=== PATIENT | female | born 1990 | race Caucasian/White ===

== ENCOUNTER 2017-09-27 18:07 | Emergency (ER) | payer MEDICARE, MEDICAID ==
[~2017-09-27] VITALS: Ht 170.2 cm; Wt 103.0 kg
[~2017-09-27 18:07] MED LIST: ACET650T11 PEG; BAC10T PO; CYCL-1 PO; FAMO40TA73 PO; IBUP-1984 PO; NITR100C6 PO; ONDA4TAB6 PO; ONDA8TAB9 PO; PANT-47 PO; PHEN-873 PO
[2017-09-27] MEDS ORDERED: TETanus/Pertussis (Acell)/Diphther VAC/PF (Tdap-Adult) 0.5ml syringe IMVAC ONE (19:35)
[2017-09-27] MEDS ORDERED: HYDROcodone/acetaminophen 10/325mg tab PO ONE (19:35)
[2017-09-27] MEDS ORDERED: methylPREDNISolone acetate 80mg/ml inj**IM only IM ONE (20:20)
[2017-09-27] MEDS ORDERED: DIPH25CA83 PO (20:23)
[2017-09-27] MEDS ORDERED: methylPREDNISolone sod succ 125mg/2ml vial IM ONE (20:25)
[2017-09-27] MEDS ORDERED: AMOX-422 PO (20:29)
[2017-09-27 20:48] VITALS: BP 122/78
== END 2017-09-27 20:51 | disposition home or self-care (01) ==
LOC: ER 18:08
DX: S61.452A Open bite of left hand, initial encounter (principal); S61.451A Open bite of right hand, initial encounter; G89.29 Other chronic pain; K21.9 Gastro-esophageal reflux disease without esophagitis; J45.909 Unspecified asthma, uncomplicated; Z79.899 Other long term (current) drug therapy; W54.0XXA Bitten by dog, initial encounter; Y93.89 Activity, other specified; Y92.89 Other specified places as the place of occurrence of the external cause; Y99.8 Other external cause status
CPT/HCPCS: 73130; 90471; 90715; 96372; 99284; A6266; A6449; J2930; J1040

== ENCOUNTER 2024-10-27 09:52 | Emergency (ER) | payer OTHER ==
[~2024-10-27] VITALS: Ht 170.2 cm; Wt 88.5 kg
[~2024-10-27 09:52] MED LIST changes: +PHEN-786 PO; -PHEN-873 PO
[2024-10-27 10:47] LABS: URINE HCG NEGATIVE (NEG)
[2024-10-27 10:50] LABS: BILIRUBIN,URINE NEGATIVE (Neg); CLARITY,URINE CLEAR (Clear); COLOR,URINE YELLOW (Yellow); GLUCOSE, URINE NEGATIVE (Neg); KETONES,URINE NEGATIVE (Neg); LEUKOCYTE ESTERASE ,URINE NEGATIVE (Neg); NITRITES, URINE NEGATIVE (Neg); OCCULT BLOOD,URINE NEGATIVE (Neg); PROTEIN,URINE NEGATIVE (Neg); UROBILINOGEN,URINE 0.2 E.U/dL (0.2-1.0)
[2024-10-27 10:50] LABS: BASOPHILS # (AUTO) 0.1 X10'3 (0-0.2); BASOPHILS % (AUTO) 1.1 % (0-1); EOSINOPHILS # (AUTO) 0.2 X10'3 (0-0.9); EOSINOPHILS % (AUTO) 2.3 % (0-6); HEMATOCRIT 43.1 % (35.0-45.0); LYMPHOCYTES # (AUTO) 2.7 X10'3 (1.1-4.8); LYMPHOCYTES % (AUTO) 37.9 % (21-51); MEAN CORPUSCULAR HEMOGLOBIN 29.1 PG (27.0-31.0); MEAN CORPUSCULAR HGB CONC 34.9 g/dL (33.0-36.5); MEAN CORPUSCULAR VOLUME 83.5 FL (78-98); MEAN PLATELET VOLUME 6.8 FL (7.4-10.4); MONOCYTES # (AUTO) 0.3 X10'3 (0-0.9); MONOCYTES % (AUTO) 4.2 % (2-12); NEUTROPHILS # (AUTO) 3.8 X10'3 (1.8-7.7); NEUTROPHILS % (AUTO) 54.5 % (42-75); PLATELET COUNT 254 X10'3 (140-440); RED BLOOD COUNT 5.16 X10'6 (4.20-5.60); RED CELL DISTRIBUTION WIDTH 13.8 % (11.5-14.5)
[2024-10-27 10:57] LABS: UA COLLECTION TYPE CLN CATCH MIDSTREAM
[2024-10-27 11:11] LABS: ALANINE AMINOTRANSFERASE 32 U/L (12-78); ALKALINE PHOSPHATASE 32 IU/L (46-116); ANION GAP 9 (8-16); ASPARTATE AMINO TRANSFERASE 14 U/L (10-37); BILIRUBIN,TOTAL 0.6 MG/DL (0.1-1.0); BLOOD UREA NITROGEN 10 MG/DL (7-18); BUN/CREATININE RATIO 14.3 (10.0-20.0); CALCIUM 8.9 MG/DL (8.5-10.1); CHLORIDE 105 MMOL/L (99-107); GLUCOSE 104 MG/DL (70-104); LIPASE 34 U/L (16-77); POTASSIUM 3.9 MMOL/L (3.5-5.1); SODIUM 140 MMOL/L (135-145); TOTAL CARBON DIOXIDE 26.2 MMOL/L (24-32); TOTAL PROTEIN 8.2 G/DL (6.4-8.2); eCRCL 109 ML/MIN; eGFR > 90 ML/MIN
--- NOTE | 2024-10-27 13:12 | RADIOLOGY REPORT ---
ABDOMINAL ULTRASOUND CLINICAL HISTORY: Please do gallbladder and right kidney TECHNIQUE: Multiple grayscale and color Doppler ultrasound images were obtained of the abdomen. WID: COMPARISON: None FINDINGS: Liver and Biliary System: Homogeneous echotexture, normal size measuring 18.4 cm. No focal hepatic observations. No intrahepatic bile duct dilatation. The common duct measures 0.25 cm at the yony hepatis. The gallbladder there sludge in a normal caliber gallbladder. Gallbladder wall measures 3 .6 mm.. Pancreas: Visualized portions are unremarkable. Kidneys: The right kidney is 10.4 x 4.8 x 5.2 cm . No hydronephrosis, increased echogenicity, shado wing stone, or focal lesion. IMPRESSION: 1. Mild hepatomegaly. 2. Gallbladder sludge. No acute cholecystitis or biliary ductal dilatation.
[2024-10-27] MEDS ORDERED: DICY20TA17 PO (13:16)
[2024-10-27] MEDS ORDERED: LACT-373 PO (13:16)
--- NOTE | 2024-10-27 13:16 | Physician Documentation ---
History of Present Illness Chief Complaint: Abdominal Pain Stated Complaint: ABD PAIN Time Seen by MD: 10:39 OK to notify your PCP?: Yes Primary Medical Doctor: ASHLEY READ IN Mode of Arrival: POV HPI Abdominal pain since Monday Medication Reconciliation Allergies: Coded Allergies: No Known Allergies (Unverified , 05/09/14) Scheduled Baclofen* (Lioresal*), 10 MG PO BID, (Reported) Dicyclomine HCl (Dicyclomine HCl), 1 TAB PO Q8H Famotidine (Pepcid), 1 TAB PO DAILY Ibuprofen* (Motrin*), 400 MG PO QID, (Reported) Nitrofurantoin Monohyd/M-Cryst (Macrobid 100 mg Capsule), 1 CAP PO BID Pantoprazole Sodium (PROTONIX tablet), 1 TAB PO DAILY Phenazopyridine Hcl (Pyridium tablet), 2 TAB PO TID Scheduled PRN Acetaminophen (Acetaminophen), 1 TAB PEG Q4H PRN for Fever above 101 Cyclobenzaprine* (Cyclobenzaprine*), 1 TABLET PO Q8H PRN for muscle spasms Lactulose (Lactulose), 30 ML PO Q12H PRN for constipation Ondansetron (Zofran Odt), 8 MG PO QID PRN for nausea/vomiting Ondansetron Hcl (Zofran), 1 TAB PO Q6H PRN for nausea Phenazopyridine Hcl (Pyridium tablet), 1 TAB PO Q8H PRN for bladder spasms Past Medical History Past Medical History: Asthma, GERD, UTI, Thyroid (unspecified), Chronic Back Pain, Bipolar Past Surgical History: no surgical history Smoking Status: Never smoker Alcohol Use: Occasionally Drug Use: none Lives with: S/O Lives In: Home Occupation: employed Review of Systems ROS As stated above in the HPI, otherwise all systems are reviewed and negative. Physical Exam Vital Signs: Temperature: 98.5, Source: Oral, Heart Rate: 77, Respiratory Rate: 16, BP: 125/82, Pulse Oximetry: 99, Weight: 88.500 Oxygen Flow Rate: 0 Physical Exam Reviewed vital signs and they are well within normal range. Const: Not in acute cardiopulmonary distress Head: Atraumatic Eyes: Normal Conjunctiva ENT: Normal External Ears, Nose and Mouth. Moist mucous membranes Neck: Full range of motion. No meningismus Resp: Clear to auscultation bilaterally. Normal work of breathing Cardio: Regular rate and rhythm, no murmurs. Skin well perfused Abd: Soft, tender in the right upper mid abdomen, non-distended. Normal bowel sounds. No rebound or guarding Skin: No petechiae or rashes. Warm and dry Back: No midline or flank tenderness Ext: No cyanosis, or edema Neuro: Awake and alert Psych: Normal Mood and Affect Progress Results/Orders Results/Orders Orders - TIAN ALMANZAR MD [facility] (10/27/24 10:48) Ultrasound Of Abdomen (10/27/24 12:19) Abdomen,Single View(Kub) (10/27/24 12:55) Completed Orders - TIAN ALMANZAR MD Urinalysis, Cult If Indicated (10/27/24 10:00) Hcg, Ur Ql (10/27/24 10:00) Cbc/Diff (10/27/24 10:00) BMP (10/27/24 10:00) Lipase (10/27/24 10:00) CMP (10/27/24 10:00) Ultrasound Of Abdomen (10/27/24 12:19) Abdomen,Single View(Kub) (10/27/24 12:55) Vital Signs 10/27/24 10/27/24 09:56 10:12 Temp 98.5 Pulse 77 Resp 16 16 B/P (MAP) 125/82 Pulse Ox 99 O2 Flow Rate 0 Laboratory Tests Test 10/27/24 10:00 10/27/24 10:15 Urine Specimen Description Cln catch midstream Urine Color Yellow Urine Clarity Clear Urine pH 6.0 Urine Specific [place] 1.020 Urine Protein Negative Urine Glucose (UA) Negative Urine Ketones Negative Urine Occult Blood Negative Urine Nitrite Negative Urine Bilirubin Negative Urine Urobilinogen 0.2 Urine Leukocyte Esterase Negative Urine Culture Indicated Not ind Volume Urine Centrifuged 10 ml Urine HCG, Qualitative Negative Urine Comment White Blood Count 7.0 Red Blood Count 5.16 Hemoglobin 15.0 Hematocrit 43.1 Mean Corpuscular Volume 83.5 Mean Corpuscular Hemoglobin 29.1 Mean Corpuscular Hemoglobin Concent 34.9 Red Cell Distribution Width 13.8 Platelet Count 254 Mean Platelet Volume 6.8 L Neutrophils (%) (Auto) 54.5 Lymphocytes (%) (Auto) 37.9 Monocytes (%) (Auto) 4.2 Eosinophils (%) (Auto) 2.3 Basophils (%) (Auto) 1.1 H Neutrophils # (Auto) 3.8 Lymphocytes # (Auto) 2.7 Monocytes # (Auto) 0.3 Eosinophils # (Auto) 0.2 Basophils # (Auto) 0.1 CBC Comment Sodium Level 140 Potassium Level 3.9 Chloride Level 105 Carbon Dioxide Level 26.2 Anion Gap 9 Blood Urea Nitrogen 10 Creatinine 0.70 Estimated GFR/1.73 m2 > 90 BUN/Creatinine Ratio 14.3 Glucose Level 104 Calcium Level 8.9 Total Bilirubin 0.6 Aspartate Amino Transf (AST/SGOT) 14 Alanine Aminotransferase (ALT/SGPT) 32 Alkaline Phosphatase 32 L Total Protein 8.2 Albumin 4.0 Globulin 4.2 Albumin/Globulin Ratio 1.0 L Lipase 34 Chemistry Comments Medical Decision Making Findings During the physical examination, the findings suggestive of acute life- threatening condition such as JVD, tracheal deviation, acidotic breathing, noisy stridorous breath sounds, pulses paradoxus, muffled heart sounds, unequal breath sounds, abdominal rigidity and rebound tenderness, focal neurological deficits, cool clammy skin, severe hypotension, severe tachycardia or bradycardia are absent. Patient's CBC and CMP are well within normal range as far as lipase. Ultrasound of the gallbladder is unremarkable. KUB shows some stool load mild to moderate. The patient will be treated and discharged home with nonspecific abdominal pain. Departure Disposition: 01 HOME / SELF CARE / HOMELESS Impression: Primary Impression: Nonspecific abdominal pain Discharge Instructions: Abdominal Pain (Nonspecific) Additional Instructions: Thank you so much for visiting [facility]. Please ask your nurse or provider if you have questions about your care today and do not leave until all your questions have been answered. Please use any medications given as directed and follow-up with your doctor in the next 1-3 days. It is very important to follow with your primary care provider to see the response to the medication prescribed here and also for further evaluation and treatment. At this point of time in this ER visit, there is no emergent surgical condition that needs to be done. However, things can change so follow up is very important. Referrals: NO PRIMARY CARE PROVIDER (PCP) Prescriptions Hydrocodone Bit/Acetaminophen 5/325 MG ([place] 5/325 MG) 5 Mg/325 Mg Tablet 1-2 TAB PO Q4HPRN PRN for pain, #20 TAB Prov: OHN,TIAN M MD 10/27/24 Lactulose (Lactulose) 10 Gram/15 Ml Solution 30 ML PO Q12H PRN for constipation, #500 ML 0 Refills Prov: TIAN ALMANZAR MD 10/27/24 Dicyclomine HCl (Dicyclomine HCl) 20 Mg Tablet 1 TAB PO Q8H for irritable bowel symptoms for 10 Days, #30 TAB 0 Refills Prov: TIAN ALMANZAR MD 10/27/24 Signature Scribe Signature: x Attestation: x TIAN ALMANZAR MD October 27, 2024 13:16
[2024-10-27] MEDS ORDERED: HYDR-3965 PO (13:17)
[2024-10-27 13:26] VITALS: TEMP 98.5
[2024-10-27 13:27] VITALS: BP 105/69; PULSE 69; RESP 16; O2SAT 99
--- NOTE | 2024-10-27 13:41 | RADIOLOGY REPORT ---
Exam: DI ABDOMEN,SINGLE VIEW(KUB) Indication: pain Comparison: None Technique: Frontal radiographic views of the abdomen. Findings: Moderate stool burden is noted. Nonobstructive bowel gas pattern noted. There is no definite evidence for pneumoperitoneum. No abnormal calcifications noted. Impression: 1. Nonobstructive bowel gas pattern noted. Moderate stool burden.
== END 2024-10-27 13:29 | disposition home or self-care (01) ==
LOC: ER 09:53
DX: R10.11 Right upper quadrant pain (principal); J45.909 Unspecified asthma, uncomplicated; F31.9 Bipolar disorder, unspecified
CPT/HCPCS: 36415; 74018; 76700; 80053; 81003; 81025; 83690; 85025; 99284